=== PATIENT | male | born 1970 | race American Indian/Alaskan Native ===

== ENCOUNTER 2021-07-06 07:16 | Outpatient (CLI) | payer OTHER ==
[2021-07-06] MEDS ORDERED: ALBUTEROL 2.5 MG/3 ML NEBU IH ONE (09:05)
== END 2021-07-06 07:17 | disposition home or self-care (01) ==
LOC: PF 07:16
PROVIDERS: ATTEND Internal Medicine
DX: Z02.71 Encounter for disability determination (principal)
CPT/HCPCS: 94640; A9270; 94060